=== PATIENT | female | born 1975 ===

== ENCOUNTER → 2017-05-08 | Outpatient (CLI) | payer BC ==
[~2017-05-08] MED LIST: IBU800 PO; NO ROUTINE MEDS; PER PO
--- NOTE | 2017-05-08 19:25 | RADIOLOGY IMAGING REPORT ---
FACILITY: [facility] [place] PATIENT NAME: Yogi Escobar : 1975 MR: [id number] V: [id number] EXAM DATE: ORDERING PHYSICIAN: RUDOLPH CONTI TECHNOLOGIST: Location: [facility] Patient: Yogi Escobar : 1975 Visit/Account:[id number] Date of Sevice: 05/08/2017 Technique: RIBS RIGHT HISTORY: Sledding accident, trauma, right rib pain COMPARISON: None available Findings: The lungs are clear. No pleural effusion or pneumothorax. The cardiomediastinal silhouett e is normal. No acute fracture. Impression: 1. No acute cardiopulmonary process. 2. No acute fracture. Report Dictated By: Meliton Keita DO at 05/08/2017 7:21 PM Report E-Signed By: Meliton Keita DO at 05/08/2017 7:22 PM WSN:[id number]
== END ==
LOC: RAD 17:08
PROVIDERS: ATTEND Nurse Practitioner Family
DX: R07.81 Pleurodynia (principal); Y93.23 Activity, snow (alpine) (downhill) skiing, snowboarding, sledding, tobogganing and snow tubing
CPT/HCPCS: 71100